=== PATIENT | female | born 1985 | race Caucasian/White ===

== ENCOUNTER 2016-09-23 21:07 | Emergency (ER) | payer SELFPAY ==
--- NOTE | 2016-09-23 22:19 | RAD ---
FRONTAL AND LATERAL IMAGING OF THE LEFT FEMUR 09/23/16 COMPARISON: None. HISTORY: Left thigh contusion, trauma, pain. FINDINGS: A linear irregular density overlies the left hemipelvis. This may represent an Essure device. Fronta l and lateral imaging of the left femur demonstrate no evidence for fracture. IMPRESSION: No left femur fracture seen. POS: [facility]
== END 2016-09-23 22:23 | disposition home or self-care (01) ==
LOC: BURERS 21:07
DX: S70.12XA Contusion of left thigh, initial encounter (principal); S40.022A Contusion of left upper arm, initial encounter; G43.909 Migraine, unspecified, not intractable, without status migrainosus; F32.9 Major depressive disorder, single episode, unspecified; F17.210 Nicotine dependence, cigarettes, uncomplicated; Y04.0XXA Assault by unarmed brawl or fight, initial encounter